=== PATIENT | female | born 1990 | race African-American/Black ===

== ENCOUNTER 2019-09-14 00:44 | Emergency (ER) | payer SELFPAY ==
[~2019-09-14] VITALS: Ht 152.4 cm; Wt 45.4 kg
[2019-09-14 01:05] VITALS: Ht 152.4 cm; Wt 45.4 kg
[2019-09-14 01:40] LABS: BILIRUBIN NEGATIVE (NEGATIVE); GLUCOSE NEGATIVE (NEGATIVE); HCG URINE NEGATIVE (NEGATIVE); KETONE NEGATIVE (NEGATIVE); NITRITE NEGATIVE (NEGATIVE); UROBILINOGEN NORMAL (NORMAL)
[2019-09-14 01:42] LABS: BACTERIA FEW /hpf (NEGATIVE); EPITHELIAL CELLS 0-5 /hpf (0-5); RED CELLS - URINE 0-5 /hpf (0-5); WHITE CELLS - URINE 0-5 /hpf (NEGATIVE)
[2019-09-14 02:56] VITALS: BP 125/77
== END 2019-09-14 02:56 | disposition home or self-care (01) ==
LOC: D.ER 00:44
PROVIDERS: Family Medicine
DX: Z20.2 Contact with and (suspected) exposure to infections with a predominantly sexual mode of transmission (principal)